=== PATIENT | female | born 1985 | race Caucasian/White ===

== ENCOUNTER 2019-04-15 15:48 | Emergency (ER) | payer OTHER ==
[~2019-04-15] VITALS: Ht 160 cm; Wt 71.2 kg
[2019-04-15 16:18] VITALS: Ht 160 cm; Wt 71.2 kg
[2019-04-15 19:28] VITALS: BP 128/74
== END 2019-04-15 19:28 | disposition home or self-care (01) ==
LOC: ED 15:48
DX: S91.312A Laceration without foreign body, left foot, initial encounter (principal); W20.8XXA Other cause of strike by thrown, projected or falling object, initial encounter; Y93.89 Activity, other specified; Y92.89 Other specified places as the place of occurrence of the external cause; Y99.8 Other external cause status
CPT/HCPCS: 90715; Q0092